=== PATIENT | female | born 1925 | race Caucasian/White ===

== ENCOUNTER 2017-01-29 20:43 | Emergency (ER) | payer MEDICARE, OTHER ==
[~2017-01-29] VITALS: Ht 160 cm; Wt 70.9 kg
[~2017-01-29 20:43] MED LIST: ADALAT CC30 MG OR; ALDACTONE25 MG PO; ALLOPURINOL100 MG PO; ANTIVERT OR; ANTIVERT25 MG PO; ASPIRIN ADULT L81 MG PO; ASPIRIN EC81 MG PO; ATENOLOL50 MG PO; COZAAR25 MG PO; DIOVAN160 MG OR; FLEXERIL PO; FUROSEMIDE40 MG PO; GABAPENTIN100 MG PO; GLIPIZIDE10 MG OR; GLIPIZIDE10 MG PO; GLIPIZIDE5 MG PO; GLUCOPHAGE1000 MG PO; GLYNASE1.5 MG OR; HUMULIN SC; IMDUR30 MG PO; INDERAL LA60 MG PO; INSULIN SC; ISOSORB DIN30 MG PO; ISOSORB MONO30 MG PO; ISOSORBIDE MONO60 MG PO; KEFLEX500 M1 PO; LANTUS100 MG/ML SC; LASIX 40 MG TAB40 MG PO; LASIX20 MG OR; LEVOTHYROXIN25 MC1 PO; LEVOTHYROXIN50 MCG PO; LORTAB 5 PO; LOSARTAN POT50 MG PO; MEDDOSEPAK PO; MICRO K OR; MOBIC7.5 MG OR; NIFEDICAL XL30 MG OR; NIFEDIPINE ER30 M1 PO; NIFEDIPINE30 MG PO; PRAVACHOL20 MG PO; PRAVASTATIN40 MG PO; PROPRANOLOL HCL20 MG PO; SKELAXIN800 MG OR; ULTRAM50 M1 PO; XANAX0.5 MG OR; XANAX0.5 MG PO; ZETIA10 MG OR; ZOFRAN ODT4 MG PO; [UNRECOGNIZED DRUG - OTHER] OR; allo OR
[2017-01-29] MEDS ORDERED: TRESIBA FL100 UNIT/M SC (21:08)
[2017-01-29 22:03] LABS: HEMATOCRIT 36.8 % (37.0-47.0); HEMOGLOBIN 11.9 g/dl (12.0-16.0); IMMATURE GRANULOCYTES 0.7 % (0.0-1.0); MEAN CELL VOLUME 93.6 fL CALC (80.0-100.0); MEAN CORPUSCULAR HGB 30.3 pG CALC (26.0-32.0); MEAN CORPUSCULAR HGB CONC 32.3 g/L CALC (32.0-36.0); NEUT# 7.28 thou/uL (2.00-7.15); RED BLOOD COUNT 3.93 mill/uL (4.20-5.60); RED CELL DISTRI WIDTH 14.1 % (11.5-15.5)
[2017-01-29 22:42] LABS: ALBUMIN 3.3 g/dL (3.2-5.0); BILIRUBIN, TOTAL 0.5 mg/dL (0.0-1.4); CALCIUM 9.2 mg/dL (8.4-10.2); CREATININE 1.4 mg/dL (0.5-1.0); POTASSIUM 4.4 mmol/l (3.5-5.1); TOTAL PROTEIN 6.8 g/dL (6.3-8.2)
[2017-01-29 22:50] LABS: URINE BILIRUBIN - DIPSTICK NEGATIVE (NEGATIVE); URINE BLOOD DIPSTICK NEGATIVE (NEGATIVE); URINE CLARITY CLEAR; URINE COLOR YELLOW; URINE GLUCOSE - DIPSTICK 100 mg/dL (NEGATIVE); URINE KETONE NEGATIVE (NEGATIVE); URINE LEUK ESTERASE NEGATIVE (NEGATIVE); URINE NITRITE - DIPSTICK NEGATIVE (Negative); URINE PROTEIN - DIPSTICK NEGATIVE (NEG-TRACE); URINE SPECIFIC GRAVITY 1.015; URINE UROBILINOGEN - DIPSTICK 0.2 E.U./dL (0.2)
[2017-01-29] MEDS ORDERED: CIPROFLOXACN500 MG PO (23:27)
[2017-01-29 23:51] VITALS: BP 166/80
== END 2017-01-29 23:52 | disposition home or self-care (01) ==
LOC: ED 20:43
PROVIDERS: Emergency Medicine
DX: I10 Essential (primary) hypertension (principal); D72.829 Elevated white blood cell count, unspecified; E11.9 Type 2 diabetes mellitus without complications; E78.5 Hyperlipidemia, unspecified; I25.10 Atherosclerotic heart disease of native coronary artery without angina pectoris; Z95.1 Presence of aortocoronary bypass graft; Z95.0 Presence of cardiac pacemaker

== ENCOUNTER 2017-02-16 03:11 | Observation (INO) | payer MEDICARE, OTHER ==
[2017-02-16] VITALS (9 sets, daily range): BP systolic 152–196; BP diastolic 52–83
[~2017-02-16] VITALS: Ht 160 cm; Wt 74.3 kg
[~2017-02-16 03:11] MED LIST changes: +CIPROFLOXACN500 MG PO; +TRESIBA FL100 UNIT/M SC
--- NOTE | 2017-02-16 03:27 | NUR ---
ARRIVES VIA [facility], IN [place].
--- NOTE | 2017-02-16 03:28 | NUR ---
UNABLE TO RECONCILE MEDS, PATIENT CAN NOT RECALL THE NAMES AND SHE DOES NOT HAVE A LIST WITH HER.
--- NOTE | 2017-02-16 03:51 | NUR ---
PT. BP 230/100 MD AWARE.
[2017-02-16 04:19] LABS: HEMOGLOBIN 13.5 g/dl (12.0-16.0); IMMATURE GRANULOCYTES 0.4 % (0.0-1.0); MEAN CELL VOLUME 94.9 fL CALC (80.0-100.0); MEAN CORPUSCULAR HGB 31.3 pG CALC (26.0-32.0); MEAN CORPUSCULAR HGB CONC 32.9 g/L CALC (32.0-36.0); NEUT# 7.11 thou/uL (2.00-7.15); RED BLOOD COUNT 4.32 mill/uL (4.20-5.60); RED CELL DISTRI WIDTH 14.6 % (11.5-15.5)
--- NOTE | 2017-02-16 04:24 | NUR ---
PT. BP 216/93 IV LABETALOL GIVEN PER MD ORDER.
[2017-02-16 04:44] LABS: ALBUMIN 3.9 g/dL (3.2-5.0); CALCIUM 9.6 mg/dL (8.4-10.2); CREATININE 1.5 mg/dL (0.5-1.0); POTASSIUM 4.3 mmol/l (3.5-5.1); TOTAL PROTEIN 8.1 g/dL (6.3-8.2)
--- NOTE | 2017-02-16 05:05 | NUR ---
PT. PLACED ON BED HAYES. VOIDED QS BRIDGET URINE.
--- NOTE | 2017-02-16 05:24 | NUR ---
RESTING QUIETLY ON STRETCHER, NO C/O.
[2017-02-16 05:37] LABS: URINE BILIRUBIN - DIPSTICK NEGATIVE (NEGATIVE); URINE BLOOD DIPSTICK SMALL (NEGATIVE); URINE CLARITY CLEAR; URINE COLOR YELLOW; URINE GLUCOSE - DIPSTICK NEGATIVE (NEGATIVE); URINE KETONE NEGATIVE (NEGATIVE); URINE LEUK ESTERASE NEGATIVE (NEGATIVE); URINE NITRITE - DIPSTICK NEGATIVE (Negative); URINE PROTEIN - DIPSTICK NEGATIVE (NEG-TRACE); URINE UROBILINOGEN - DIPSTICK 0.2 E.U./dL (0.2)
[2017-02-16 05:52] LABS: URINE SQUAMOUS EPITHELIAL CELL RARE EPI/hpf (0-FEW); URINE WBC 0-2 WBC/hpf (0-5)
[2017-02-16] MEDS ORDERED: IBUPROFEN600 MG PO (06:37)
--- NOTE | 2017-02-16 06:53 | NUR ---
Admission Note Report Given to: YOHANNES MOHAN Transported by: Wheelchair X Stretcher Transported with: X Nurse Transporter X Patent IV O2 X Engineering Design Supervisor
--- NOTE | 2017-02-16 07:30 | NUR ---
Admission Note Report Given to: JOANNE RN BY FILIBERTO RN Transported by: Wheelchair X Stretcher Transported with: X Nurse Transporter X Patent IV O2 X Respiratory Care Assistant ALL BELONGINGS WITH PT. IV SITE HEALTHY. VSS. PT IN STABLE CONDITION.
--- NOTE | 2017-02-16 07:40 | NUR ---
PT ARRIVED TO FLOOR VIA STRETCHER ACCOMPANIED BY MARQUES WAGNER. PT REFUSING TO STAND R/T WEAKNESS AND FALLS AT HOME YESTERDAY AND THIS AM. PULLED OVER TO BED. DENIES PAIN. REPORTING OF CONCERNS ENCOURAGED. PT ORIENTED TO ROOM AND EQUIPMENT. PLAN OF CARE DISCUSSED. FALL PRECAUTIONS REINFORCED. CALL LIGHT REVIEWED AND IN REACH. PT STATES UNDERSTANDING.
--- NOTE | 2017-02-16 09:09 | NUR ---
BP ON ARRIVAL TO FLOOR 185/76, HR 60 BPM. FOLLOW-UP BP 196/83, HR [address] ABREU NOTIFIED. ORDERS GIVEN FOR MEDICATIONS.
--- NOTE | 2017-02-16 13:00 | NUR ---
PT SITTING UPRIGHT IN BED. PLAN OF CARE UPDATED. PT STATES UNDERSTANDING. WILL CONTINUE TO MONITOR.
--- NOTE | 2017-02-16 16:41 | NUR ---
PT SLEEPING AT THIS TIME. CALL LIGHT WITHIN REACH.
--- NOTE | 2017-02-16 19:00 | NUR ---
RECEIVED SHIFT REPORT FROM MARQUES RUBIO. PATIENT LAYING IN BED QUIETLY AND APPEARS NOT TO BE IN ANY DISCOMFORY. PATIENT DENIES PAIN. IV VANCOMYCIN INFUSING @ 125CC/HR VIA PUMP WITHOUT DIFFICULTY. SPOUSE AT BEDSIDE. WILL CONTINUE TO MONITOR.
--- NOTE | 2017-02-16 19:00 | NUR ---
RECEIVED SHIFT REPORT FROM MARQUES RUBIO. PATIENT LAYING IN BED QUIETLY AND APPEARS NOT TO BE IN ANY DISCOMFORT. PATIENT DENUES PAIN. WILL CONTINUE TO MONITOR
--- NOTE | 2017-02-17 | NUR ---
PATIENT RESTING QUIETLY IN BED AND APPEARS TO BE IN NO ACUTE DISTRESS OR DISCOMFORT.
--- NOTE | 2017-02-17 04:00 | NUR ---
NO ACUTE CHANGES NOTED IN PATIENT'S CONDITION.
[2017-02-17 04:15] VITALS: BP 151/71
[2017-02-17 04:48] LABS: HEMATOCRIT 34.2 % (37.0-47.0); HEMOGLOBIN 11.4 g/dl (12.0-16.0); IMMATURE GRANULOCYTES 0.3 % (0.0-1.0); MEAN CELL VOLUME 93.7 fL CALC (80.0-100.0); MEAN CORPUSCULAR HGB 31.2 pG CALC (26.0-32.0); MEAN CORPUSCULAR HGB CONC 33.3 g/L CALC (32.0-36.0); NEUT# 5.3 thou/uL (2.00-7.15); RED BLOOD COUNT 3.65 mill/uL (4.20-5.60); RED CELL DISTRI WIDTH 14.5 % (11.5-15.5)
[2017-02-17 05:09] LABS: CALCIUM 9.2 mg/dL (8.4-10.2); CREATININE 1.4 mg/dL (0.5-1.0); POTASSIUM 4.2 mmol/l (3.5-5.1)
[2017-02-17 08:25] VITALS: BP 141/50
--- NOTE | 2017-02-17 08:25 | NUR ---
ASSESSMENT IS COMPLETED: IV SITE IS FREE FROM REDNESS OR EDEMA. TELE MONITOR IN PLACE. NO C/O PAIN VOICED. BREATH SOUNDS ARE CLEAR AND DIMINSHED IN BASES. CONTINUE TO OBSERVE AND MONITOR.
[2017-02-17 11:10] VITALS: BP 131/58
--- NOTE | 2017-02-17 12:15 | NUR ---
IV SITE IS FREE FROM REDNESS OR EDEMA. NO DISTRESS NOTED. CONTINUE TO OSBERVE AND MONITOR.
[2017-02-17 14:44] VITALS: BP 150/58
--- NOTE | 2017-02-17 16:15 | NUR ---
PT HAS AMBULATED TO THE BATHROOM X2, WITH WALKER. NO DISTRESS NOTED. IV SITE IS FREE FROM REDNESS OR EDEMA. TELE MONITOR IN PLACE. CONTINUE TO OSBERVE AND MONITOR,
--- NOTE | 2017-02-17 17:41 | NUR ---
PT IS RELAXING IN THE BED WITH NO DISTRESS NOTED. IV SITE IS FREE FROM REDNESS OR EDEMA.
--- NOTE | 2017-02-17 20:02 | NUR ---
PATIENT RESTING IN BED AT THIS TIME IN NO ACUTE DISTRESS. PATIENT IS AWAKE ALERT AND ORIENTEDX3. PATIENT WITH NO COMPLAINTS AT THIS TIME. PATIENT WITH IV SITE TO LEFT AC-SITE IS HEALTHY WITH GOOD BLOOD RETURN WHEN FLUSHED. PATIENT WITH TRACE PEDAL EDEMA AND TEDS REMOVED FOR THE NIGHT. SAFETY PRECAUTIONS REINFORCED WITH PATIENT. CALL LIGHT IN REACH. WILL CONT TO MONITOR.
--- NOTE | 2017-02-17 23:40 | NUR ---
PATIENT APPEARS SLEEPING AT THIS TIME WITH EYES CLOSED. CALL LIGHT IN REACH. WILL CONT TO MONITOR.
[2017-02-17 23:55] VITALS: BP 152/70
[2017-02-18 03:25] VITALS: BP 159/74
--- NOTE | 2017-02-18 04:00 | NUR ---
PATIENT APPEARS SLEEPING AT THIS TIME WITH EYES CLOSED. CALL LIGHT IN REACH. WILL CONT TO MONITOR.
--- NOTE | 2017-02-18 07:30 | NUR ---
PT UP IN CHAIR; NO COMPLAINTS VOICED; TELE MONITOR IN PLACE; CALL CERRATO WITHIN REACH; WILL CONTINUE TO MONITOR.
[2017-02-18 07:55] VITALS: BP 177/75
--- NOTE | 2017-02-18 08:46 | NUR ---
PHYSICAL THERAPY IN WITH PT;
--- NOTE | 2017-02-18 10:03 | NUR ---
Pt seen this am for gait and ther ex. She was in bed, without complaints. Pt moved supine to and from sit with bed rail indep. Pt moved sit to stand with verbal cues to push off bed and when sitting to reach back to bed before sitting. Gait with 2 wheeled walker 2 x 125' with SBA/CGA. No LOB noted. Sitting and supine ex were performed. Pt reports she still does ex from last OP PT sessions. Gait belt and non skid socks in place during treatment. Pt resting in bed with call newman and phone in reach.
--- NOTE | 2017-02-18 12:18 | NUR ---
Discharge instructions given. Patient verbalizes understanding of same. Discharged in stable condition via Wheelchair to Home with family. All belongings sent with pt.
== END 2017-02-18 12:18 ==
LOC: ENPENDDIS → ED 03:11 → ED-I 04:17 → ED 06:49 → MS2 06:50
PROVIDERS: Emergency Medicine; ADMIT Internal Medicine; ATTEND Internal Medicine
DX: R53.1 Weakness (principal); I16.0 Hypertensive urgency; I10 Essential (primary) hypertension; E78.5 Hyperlipidemia, unspecified; E03.9 Hypothyroidism, unspecified; E11.69 Type 2 diabetes mellitus with other specified complication; I25.10 Atherosclerotic heart disease of native coronary artery without angina pectoris; E11.40 Type 2 diabetes mellitus with diabetic neuropathy, unspecified; E11.21 Type 2 diabetes mellitus with diabetic nephropathy; R42 Dizziness and giddiness; Z79.4 Long term (current) use of insulin; Z95.0 Presence of cardiac pacemaker; Z95.1 Presence of aortocoronary bypass graft
CPT/HCPCS: J1650